=== PATIENT | male | born 1975 | race Caucasian/White ===

== ENCOUNTER 2019-06-18 11:15 | Emergency (ER) | payer OTHER ==
[~2019-06-18] VITALS: Ht 172.7 cm; Wt 100.0 kg
--- NOTE | 2019-06-18 18:13 | EKG ---
[facility] [address] [facility] [place] [address] Signed Atrial fibrillation with rapid ventricular response with premature ventricular or aberrantly conducted complexes Rightward axis Nonspecific intraventricular block Inferior infarct , possibly acute ACUTE GA / STEMI Consider right ventricular involvement in acute inferior infarct Abnormal ECG No previous ECGs available Confirmed by NEL PEARCE MD ([id number]) on 06/18/2019 6:13:42 PM Electronically Signed By: NEL PEARCE MD 06/18/19 1813 PATIENT NAME: NGOC GALLO Electrocardiogram DATE OF : 77 PHYSICIAN: NEL PEARCE MD REPORT #: [id number] REPORT IS CONFIDENTIAL AND NOT TO BE RELEASED WITHOUT AUTHORIZATION
--- NOTE | 2019-06-18 18:14 | EKG ---
[facility] [address] [place] [address] Signed Wide QRS tachycardia Rightward axis Nonspecific intraventricular block Cannot rule out Anteroseptal infarct , age undetermined Inferior injury pattern ACUTE [place] / STEMI Abnormal ECG When compared with ECG of 18-JUN-2019 12:47, (Unconfirmed) Wide QRS tachycardia has replaced Sinus rhythm Confirmed by NEL PEARCE MD ([id number]) on 06/18/2019 6:14:17 PM Electronically Signed By: NEL PEARCE MD 06/18/19 1814 PATIENT NAME: NGOC GALLO Electrocardiogram DATE OF : 77 PHYSICIAN: NEL PEARCE MD REPORT #: [id number] REPORT IS CONFIDENTIAL AND NOT TO BE RELEASED WITHOUT AUTHORIZATION
--- NOTE | 2019-06-18 18:14 | EKG ---
[facility] [address] [place] [place] [address] Signed Sinus tachycardia Possible Inferior infarct (cited on or before 18-JUN-2019) Marked ST abnormality, possible lateral subendocardial injury Abnormal ECG When compared with ECG of 18-JUN-2019 11:28, (Unconfirmed) Sinus rhythm has replaced Atrial fibrillation QRS duration has decreased Serial changes of evolving Inferior infarct present Confirmed by NEL PEARCE MD ([id number]) on 06/18/2019 6:13:54 PM Electronically Signed By: NEL PEARCE MD 06/18/19 1814 PATIENT NAME: NGOC GALLO Electrocardiogram DATE OF : 77 PHYSICIAN: NEL PEARCE MD REPORT #: [id number] REPORT IS CONFIDENTIAL AND NOT TO BE RELEASED WITHOUT AUTHORIZATION
== END 2019-06-18 17:55 | disposition short-term general hospital (02) ==
LOC: ED 11:15 → EDBD 11:16 → ED 17:55
DX: R55 Syncope and collapse (principal); S05.12XA Contusion of eyeball and orbital tissues, left eye, initial encounter; E87.2 Acidosis; F10.239 Alcohol dependence with withdrawal, unspecified; R56.9 Unspecified convulsions; X58.XXXA Exposure to other specified factors, initial encounter
CPT/HCPCS: 31500; 36415; 36600; 70450; 71045; 71260; 72125; 74177; 80048; 80053; 81001; 82550; 82803; 83735; 84484; 85025; 93005; 93010; 94002; 96368; 99291; 99292; G0480; J1815; J2060; J2250; J2704; J3010; J7030; J7060; Q9967